=== PATIENT | female | born 1945 | race Caucasian/White ===

== ENCOUNTER 2017-10-29 14:25 | Outpatient (CLI) | payer MEDICARE | END 2017-10-29 14:26 | disposition home or self-care (01) | LOC: BICULT 14:25 | PROVIDERS: ATTEND Internal Medicine | DX: I83.90 Asymptomatic varicose veins of unspecified lower extremity (principal) | CPT/HCPCS: 93970 ==

== ENCOUNTER 2018-10-14 10:35 | Outpatient (CLI) | payer MEDICARE ==
--- NOTE | 2018-10-14 12:16 | ULT ---
THYROID ULTRASOUND: Date: 10/14/18 COMPARISON: 02/26/18. HISTORY: Thyroid nodule. TECHNIQUE: Multiplanar Rondon scale and color Doppler images were obtained in a thyroid ultrasound. FINDINGS: There are nodules in both thyroid lobes. There is a stable nodule in the lower pole of the right thyr oid measuring 2.3 cm in greatest dimension. This is well circumscribed and hypoechoic and wider than tall. No suspicious calcifications are seen within this nodule. Immediately adjacent to this nodule, there is a hyperechoic region which may represent a hyperechoic nodule measuring 1.0 cm in greatest d imension. In the left thyroid lobe, there is a complex solid/cystic nodule measuring 1.6 cm in greatest dimensi on, without suspicious calcifications. Thyroid lobes measure 5.3 and 4.4 cm in length on the right and left, respectively. IMPRESSION: Stable thyroid nodules. The most suspicious nodule is in the lower pole of the right thyroid lobe and this nodule remains stable. This is a TI-RADS Category 4 nodule. POS: [facility]
== END 2018-10-14 10:36 | disposition home or self-care (01) ==
LOC: BICULT 10:35
PROVIDERS: ATTEND Otolaryngology Otolaryngic Allergy
DX: E04.2 Nontoxic multinodular goiter (principal); E04.9 Nontoxic goiter, unspecified
CPT/HCPCS: 76536

== ENCOUNTER 2019-02-01 08:52 | Outpatient (CLI) | payer MEDICARE ==
--- NOTE | 2019-02-01 09:54 | MMO ---
Bilateral MAMMO Bilat Screen [facility]. CLINICAL HISTORY: Patient is 73 years old and is seen for screening. The patient has the following family history of breast cancer: mother, at age 50 and daughter, at age 42. The patient has no personal history of cancer. The patient has a history of left Excisional Biopsy at age 49 - benign. VIEWS: The views performed were: bilateral craniocaudal with tomosynthesis; bilateral mediolateral oblique; and bilateral mediolateral oblique with tomosynthesis. FILMS COMPARED: The present examination has been compared to prior imaging studies performed at [facility] on 01/17/2015, 01/21/2016, 01/22/2017 and 01/25/2018. MAMMOGRAM FINDINGS: There are scattered fibroglandular densities. There are stable benign appearing calcifications seen in both breasts. There are no suspicious masses, suspicious calcifications, or new areas of architectural distortion. IMPRESSION: THERE IS NO MAMMOGRAPHIC EVIDENCE OF MALIGNANCY. A ROUTINE FOLLOW-UP MAMMOGRAM IN 1 YEAR IS RECOMMENDED. THE RESULTS OF THIS EXAM WERE SENT TO THE PATIENT. ACR BI-RADS Category 2 - Benign finding MAMMOGRAPHY NOTE: 1. A negative mammogram report should not delay a biopsy if a dominant of clinically suspicious mass is present. 2. Approximately 10% to 15% of breast cancers are not detected by mammography. 3. Adenosis and dense breasts may obscure an underlying neoplasm. Reported by: NIGHAT FONSECA MD Electonically Signed: [id number]
== END 2019-02-01 08:53 | disposition home or self-care (01) ==
LOC: BICMAMMO 08:52
PROVIDERS: ATTEND Obstetrics & Gynecology
DX: Z12.31 Encounter for screening mammogram for malignant neoplasm of breast (principal); Z80.3 Family history of malignant neoplasm of breast
CPT/HCPCS: 77063; 77067

== ENCOUNTER 2020-01-18 09:00 | Outpatient (CLI) | payer MEDICARE ==
--- NOTE | 2020-01-18 09:59 | ULT ---
US Thyroid STANDARD: 01/18/2020 12:00 AM CLINICAL INDICATION: Thyroid nodule. COMPARISON: 10/14/2018 FINDINGS: Right and left thyroid lobes are normal in size and echotexture. The right thyroid lobe measures 5.0 cm and the left thyroid lobe measures 4.0cm. There is a 2.4 cm hypoechoic nodule in the right thyroid lobe that is well-circumscribed. This nodule does not contain suspicious calcifications. A 9 mm hyperechoic nodule is seen adjacent to the larger nodule. There is a 1.6 cm area of nodularity in the left inferior thyroid lobe. No cervical lymphadenopathy is noted. IMPRESSION: Stable multinodular thyroid TIRADS category 4 -this is for the larger nodule in the right thyroid lobe.
== END 2020-01-18 09:01 | disposition home or self-care (01) ==
LOC: BICULT 09:00
PROVIDERS: ATTEND Otolaryngology Otolaryngic Allergy
DX: E04.2 Nontoxic multinodular goiter (principal)
CPT/HCPCS: 76536

== ENCOUNTER 2021-11-07 09:31 | Outpatient (CLI) | payer MEDICARE | END 2021-11-07 09:32 | disposition home or self-care (01) | LOC: BICULT 09:31 | PROVIDERS: ATTEND Internal Medicine | DX: E04.2 Nontoxic multinodular goiter (principal) | CPT/HCPCS: 76536 ==

== ENCOUNTER 2022-02-05 09:57 | Outpatient (CLI) | payer MEDICARE | END 2022-02-05 09:58 | disposition home or self-care (01) | LOC: BICMAMMO 09:57 | PROVIDERS: ATTEND Internal Medicine | DX: Z12.31 Encounter for screening mammogram for malignant neoplasm of breast (principal); Z80.3 Family history of malignant neoplasm of breast; Z91.89 Other specified personal risk factors, not elsewhere classified | CPT/HCPCS: 77063; 77067 ==

== ENCOUNTER 2023-02-15 12:44 | Emergency (ER) | payer MEDICARE | END 2023-02-15 13:42 | disposition home or self-care (01) | LOC: ERS 12:44 | DX: M25.512 Pain in left shoulder (principal); I10 Essential (primary) hypertension | CPT/HCPCS: 99283 ==

== ENCOUNTER 2023-02-20 09:25 | Outpatient (CLI) | payer MEDICARE | END 2023-02-20 09:26 | disposition home or self-care (01) | LOC: BICMAMMO 09:25 | PROVIDERS: ATTEND Internal Medicine | DX: Z12.31 Encounter for screening mammogram for malignant neoplasm of breast (principal); Z13.820 Encounter for screening for osteoporosis; E04.2 Nontoxic multinodular goiter; Z78.0 Asymptomatic menopausal state; Z80.3 Family history of malignant neoplasm of breast; Z91.89 Other specified personal risk factors, not elsewhere classified | CPT/HCPCS: 76536; 77063; 77067; 77080 ==

== ENCOUNTER 2023-08-03 09:30 | Outpatient (CLI) | payer MEDICARE | END 2023-08-03 09:31 | disposition home or self-care (01) | LOC: BICULT 09:30 | PROVIDERS: ATTEND Internal Medicine | DX: E04.2 Nontoxic multinodular goiter (principal); M16.12 Unilateral primary osteoarthritis, left hip; M54.9 Dorsalgia, unspecified; M47.816 Spondylosis without myelopathy or radiculopathy, lumbar region; M46.06 Spinal enthesopathy, lumbar region; M89.38 Hypertrophy of bone, other site; M43.8X5 Other specified deforming dorsopathies, thoracolumbar region; Z91.81 History of falling | CPT/HCPCS: 72100; 76536 ==

== ENCOUNTER 2024-05-16 09:45 | Outpatient (CLI) | payer MEDICARE ==
[2024-05-16] MEDS ORDERED: Iopamidol 370 76% 100 ML VIAL ONE (15:25)
== END 2024-05-16 09:46 | disposition home or self-care (01) ==
LOC: BICCT 09:45
PROVIDERS: ATTEND Internal Medicine
DX: R10.9 Unspecified abdominal pain (principal); R11.2 Nausea with vomiting, unspecified; N28.89 Other specified disorders of kidney and ureter
CPT/HCPCS: 74160

== ENCOUNTER 2024-07-04 08:30 | Day surgery (SDC) | payer MEDICARE ==
[2024-07-04 09:15] LABS: PTT 27.1 sec (22.9-36.1); Prothrombin Time 13.5 sec (12.0-14.7)
[2024-07-04 09:19] LABS: #Basophils 0.03 10x3/uL (0.0-0.2); %Basophils 0.4 % (0.0-1.0); %Eosinophils 5.8 % (0.0-10.0); %Lymphocytes 26.8 % (21.0-51.0); %Monocytes 8.9 % (0.0-10.0); Hemoglobin 11.8 g/dL (12.0-16.0); Mean Corpuscular HGB CONC 31.9 g/dL (32.0-36.0); Mean Corpuscular Hemoglobin 29.6 pg (27.0-31.0); Mean Platelet Volume 12.6 fL (7.4-10.4); Platelet Count 214 10x3/uL (130-400); RBC Distribution Width 13.7 % (11.5-14.5); Red Blood Cell (RBC) Count 3.98 mill/uL (4.20-5.40)
== END 2024-07-04 11:00 | disposition home or self-care (01) ==
LOC: CT 08:30
PROVIDERS: ATTEND Urology
DX: N28.89 Other specified disorders of kidney and ureter (principal); Z53.8 Procedure and treatment not carried out for other reasons; I10 Essential (primary) hypertension; Z88.1 Allergy status to other antibiotic agents; Z91.041 Radiographic dye allergy status; Z88.0 Allergy status to penicillin; Z88.2 Allergy status to sulfonamides
CPT/HCPCS: 85025; 85610; 85730